=== PATIENT | female | born 1945 | race Caucasian/White ===

== ENCOUNTER 2017-02-22 18:22 | Outpatient (CLI) | payer MEDICARE, BC | END 2017-02-22 18:23 | disposition critical access hospital (66) | LOC: EMS 18:22 | PROVIDERS: ATTEND Surgery | DX: R03.0 Elevated blood-pressure reading, without diagnosis of hypertension (principal); R04.0 Epistaxis; R42 Dizziness and giddiness | CPT/HCPCS: A0425; A0429 ==

== ENCOUNTER 2017-02-22 18:57 | Emergency (ER) | payer MEDICARE, BC ==
--- NOTE | 2017-02-22 19:18 | ED Physician Documentation ---
PD MARCIA SANTO - Stated complaint Stated Complaint: HTN - Chief complaint Chief Complaint: Cardiac - History obtained from History obtained from: Patient, EMS - History of Present Illness Timing - onset: Today Timing - duration: Other Timing - details: Abrupt onset (she was sitting at computer feeling okay and noted some bleeding right nostril. She dabbed with kleenex and then pinched her nose. She says it bled for a few minutes then stopped. She has had some congestion, runny nose for few days. She was concerned that the bleeding may be due to high BP and so took her blood pressure. It was about 170s systolic. She was concerned and so took it again in 5-10 minutes and was up to 180s. She took it a few times over the next 1/2 hour and it increased to 210 systolic. No chest pain, headache, visual change. She was concerned about the degree of BP elevation and called 911. She had been off BP meds at direction of her PCP since had been low BP (down to even 90-100 systolic couple of times) so no BP meds for the past month or so. She did take her Losartan prior to EMS arrival due to BP being so high. 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 No: Fever, Swollen nodes, Cough Similar symptoms before: Has not had sx before (not had BP as elevated as that in the past.) Recently seen: Clinic (about a month ago. 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, Other - Present Medications Home Medications: Ambulatory Orders Medication Instructions Recorded Confirmed Hydrocortisone 1% Oint 1 applic ORAL DAILY 02/22/17 02/22/17 [Hydrocortisone] diphenhydrAMINE [Benadryl] 25 mg PO DAILY PM 02/22/17 02/22/17 - Allergies Allergies/Adverse Reactions: Allergies Allergy/AdvReac Type Severity Reaction Status Date / Time penicillin G Allergy Hives Verified 02/22/17 19:04 Iodine and Iodide Containing AdvReac Rash Verified 02/22/17 19:04 Produc latex AdvReac Rash Verified 02/22/17 19:04 lisinopril AdvReac Rash Verified 02/22/17 19:04 promethazine AdvReac Hallucinati Verified 02/22/17 19:04 ons - Social History Does the pt smoke?: No Smoking Status: Never smoker Does the pt have substance abuse?: No PD ED PE NORMAL - Vitals Vital signs reviewed: Yes - General General: Alert and oriented X 3, No acute distress, Well developed/nourished - HEENT HEENT: Atraumatic, PERRL, Ears normal, Moist mucous membranes, Pharynx benign, Other (nose without any bleeding at this point. Mild irritation right upper anterior medial wall. ) - Neck Neck: Supple, no meningeal sign, No adenopathy, No JVD - Cardiac Cardiac: RRR, No murmur - Respiratory Respiratory: Clear bilaterally - Back Back: No CVA TTP - Derm Derm: Normal color, Warm and dry, No rash - Extremities Extremities: No tenderness to palpate, Normal ROM s pain, No edema, No calf tenderness / cord - Neuro Neuro: Alert and oriented X 3, key account executive 2-12 intact, No motor deficit, No sensory deficit, Normal speech Results - Vitals Vitals: Vital Signs - 24 hr 02/22/17 02/22/17 19:00 19:47 Temperature 35.8 C L Heart Rate 84 68 Respiratory 16 20 Rate Blood Pressure 176/77 H 176/68 H O2 Saturation 100 98 Oxygen O2 Source Room air - EKG (time done) 19:10 Rate: Rate (enter#) (77) Rhythm: NSR [place]: Normal Intervals: Normal CA QRS: Normal Ischemia: Normal ST segments. No: ST elevation c/w ischemia, ST depression PD MEDICAL DECISION MAKING - ED course Complexity details: re-evaluated patient (BP is trending down and she had taken Losartan at home (had been off it awhile recently since BP better, and her PMD told her to stop it). She may have just reacted to the brief nosebleed and BP spiraled. Recheck it the next few days and may need to resume her Losartan regularly. ), considered differential, d/w patient Departure - Departure Disposition: 01 Home, Self Care Clinical Impression: Epistaxis, Transient hypertension Condition: Stable Record reviewed to determine appropriate education?: Yes Instructions: ED Nosebleed Comments: You could use some saline nasal spray a few times daily for the next several days, as this can help with cleansing and reduce irritation leading to nosebleed. Pinch nose if bleeding again and recheck if it does not stop after pinching for several minutes. Regarding your blood pressure, it may have just gone spiraled high due to the nosebleed. See how it does in the next 2-3 days, taking it morning and evening. If persists some high (over 150 systolic or 90 diastolic), then continue the Losartan at perhaps 25 mg (half tablet) daily. Increase to the 50 mg if stays some high over couple more days. Follow up with your PMD later this week to update on the trend of the BPs. Discharge Date/Time: 02/22/17 19:54
[2017-02-22 19:47] VITALS: BP 176/68
== END 2017-02-22 19:54 | disposition home or self-care (01) ==
LOC: EDUNIT# → ED 18:57
DX: R04.0 Epistaxis (principal); I10 Essential (primary) hypertension; Z86.718 Personal history of other venous thrombosis and embolism
CPT/HCPCS: 93005; 99283

== ENCOUNTER 2021-01-27 08:00 | Outpatient (CLI) | payer BC, MEDICARE | END 2021-01-27 23:59 | disposition home or self-care (01) | LOC: LAB.S 08:00 | PROVIDERS: ATTEND Emergency Medicine | DX: L01.00 Impetigo, unspecified (principal); H02.834 Dermatochalasis of left upper eyelid | CPT/HCPCS: 87070; 87181; 87205 ==

== ENCOUNTER 2023-04-21 08:00 | Outpatient (CLI) | payer MEDICARE, BC ==
--- NOTE | 2023-04-22 11:46 | XRAY Report ---
PROCEDURE: Abdomen Acute INDICATIONS: ABDOMINAL PAIN TECHNIQUE: 2 views of the abdomen were acquired. COMPARISON: None. FINDINGS: Surgical changes and devices: None. Chest: Lungs are clear. Heart size is normal. No pleural effusions. No pneumoperitoneum. Bowel: No pneumoperitoneum. The bowel gas pattern is normal. Stool load within normal limits. Soft tissues: No masses; visualized solid organ contours appear normal in size. No suspicious abdom inal calcifications. Bones: No suspicious bony abnormalities. IMPRESSION: No acute process. Reviewed by: Alfonso Black MD on 04/22/2023 11:45 AM [facility] Approved by: Alfonso Black MD on 04/22/2023 11:45 AM [facility] Station ID: [id number]
== END 2023-04-21 23:59 | disposition home or self-care (01) ==
LOC: DI.S 08:00
PROVIDERS: ATTEND Emergency Medicine
DX: R10.9 Unspecified abdominal pain (principal)